=== PATIENT | female | born 1980 | race Caucasian/White ===

== ENCOUNTER → 2019-06-14 09:32 | Outpatient (BNVA) | payer BC, SELFPAY | PROVIDERS: Family Provider Family Medicine Geriatric Medicine; PCP Anesthesiology Pain Medicine; Referring Provider Licensed Practical Nurse; Visit Provider Psychiatry & Neurology Neurology | DX: G56.01 Carpal tunnel syndrome, right upper limb (principal) | CPT/HCPCS: 95885; 95908 ==

== ENCOUNTER 2019-08-06 08:59 | Outpatient (CLI) | payer BC, SELFPAY ==
--- NOTE | 2019-08-06 09:00 | IR_ITS ---
WS: [id number] MYELOGRAM CERVICAL, THORACIC, AND LUMBAR SPINE Fluoroscopic guided cervical myelogram CLINICAL INFORMATION: Thoracic back pain, LOW BACK PAIN, NECK PAIN COMPARISON: None. TECHNIQUE: The procedure, including risks, benefits, and complications, were discussed with the patie nt who agreed to proceed. A timeout was performed to confirm correct patient, procedure, and site. Using sterile technique, the patient was prepped and draped in the usual sterile fashion. After admin istration of local anesthesia using 1% preservative-free lidocaine and using fluoroscopic guidance, a 22-gauge spinal needle was advanced into the subarachnoid space at the L3-L4 level. Subsequently 13 cc of Omnipaque 300 was administered into the thecal sac. The needle was removed and hemostasis was a chieved. Subsequently the table was tilted down and contrast flowed freely into the cervical spine. S pot fluoroscopic images were obtained. FLUOROSCOPIC TIME: 0.7 minutes. Spot fluoroscopic images demonstrate free flow contrast into the cervical spine. Moderate spondylitic changes cervical spine with straightening of the normal cervical lordosis. Anterior hypertrophic kinza nges worse at C5-C7. Surgical clips in the neck. Normal C1-2 articulation. No instability in cervical spine on flexion-extension. Mild thoracic curve convex right. Mild spondylitic changes thoracic spine. Disc space heights and richie tebral body heights are well preserved. Mild lumbar curve convex left. Small riblets at T12. Disc space heights in the lumbar spine well pres erved. No anterolisthesis in the neutral position. No instability on flexion-extension. Please see CT myelogram report for additional detail. IR/IR myelogram spine total [id number] IMPRESSION: 1. Uncomplicated complete spinal myelogram 2. No instability on flexion-extension in the lumbar spine or cervical spine. Please see CT for further anatomic detail.
--- NOTE | 2019-08-06 11:00 | CT_ITS ---
WS: [id number] CT LUMBAR SPINE TECHNIQUE: Contrast-enhanced CT of the lumbar spine with coronal and sagittal reformatted images. CLINICAL INFORMATION: Low back pain COMPARISON: None. DLP: 1228.[address] scans at [facility] use at least one of these dose optimization techniques: automat ed exposure control; mA and/or kV adjustment per patient size (includes targeted exams where dose is matched to clinical indication); or iterative reconstruction. FINDINGS: Mild lumbar curve. Convex left. No acute compression. No high-grade central canal narrowing. L1-L2: Normal. L2-L3: Normal. L3-L4: No significant disc bulging. Spinal canal and foramen are patent. L4-L5: Mild annular bulging. Moderate facet arthropathy. Spinal canal and foramen are patent. L5-S1: L5 is partially sacralized. Spinal canal and foramen are patent. Incidental shotty retroperitoneal and periaortic lymph nodes. Prominent bilateral SI joint sclerosis can be seen with chronic prior sacroiliitis or degenerative ch jamaal CT/CT lumbar spine w con [id number] IMPRESSION: 1. Mild lumbar curve convex left. 2. No significant central canal stenosis. 3. Moderate facet arthropathy L4-5. 4. L5 is partially sacralized the left. 5. Bilateral SI joint sclerosis can be seen with prior sacroiliitis or degener ative change.
--- NOTE | 2019-08-06 11:00 | CT_ITS ---
WS: [id number] CT CERVICAL MYELOGRAM TECHNIQUE: CT of the cervical spine coronal and sagittal reformatted images post intrathecal administ ration of contrast. CLINICAL INFORMATION: Neck pain radiating to bilateral upper extremities COMPARISON: MRI September 18, 2018 DLP: 1659.[address] scans at [facility] use at least one of these dose optimization techniques: automat ed exposure control; mA and/or kV adjustment per patient size (includes targeted exams where dose is matched to clinical indication); or iterative reconstruction. FINDINGS: Straightening of the normal cervical lordosis. Anterior hypertrophic changes at C5-C7. C2-C3: No significant disc bulging. Spinal canal and foramen are patent. C3-C4: No significant disc bulging. Spinal canal and foramen are patent. Mild facet arthropathy. C4-C5: No significant disc bulging. Spinal canal and foramen are patent. Mild to moderate facet arthr opathy. C5-C6: Mild disc bulging with osteophytic ridging. Mild bilateral bony foraminal narrowing. Mild face t arthropathy. Spinal canal is patent. C6-C7: Disc osteophyte complex with endplate ridging. Left pericentral osteophytic protrusion. Spinal canal is patent. Moderate left and mild right foraminal narrowing. Mild facet arthropathy. C7-T1: Mild left and no significant right bony foraminal narrowing. Spinal canal is patent. Tiny cent ral disc protrusion. Visualized posterior fossa structures: Normal. CT/CT cervical spine w con [id number] IMPRESSION: 1. Straightening of the normal cervical lordosis. No high-grade central canal stenosis. 2. Mild spondylitic changes worse at C5-C7. 3. Left pericentral disc osteophyte protrusion with slight contact of the vent ral cervical cord. Moderate left C6-7 bony foraminal narrowing. 4. Otherwise mild bony foraminal narrowing at left C4-C5, left C5-C6, and left greater than right C7-T1. 5. Mild to moderate facet arthropathy C4-C5 and C5-C6.
--- NOTE | 2019-08-06 11:00 | CT_ITS ---
WS: [id number] CT THORACIC SPINE MYELOGRAM TECHNIQUE: Contrast-enhanced CT of the thoracic spine with coronal and sagittal reformatted images. CLINICAL INFORMATION: Thoracic back pain COMPARISON: MRI October 24, 2018 DLP: 929.[address] scans at [facility] use at least one of these dose optimization techniques: automat ed exposure control; mA and/or kV adjustment per patient size (includes targeted exams where dose is matched to clinical indication); or iterative reconstruction. FINDINGS: Mild thoracic curve. Mild thoracic kyphosis. A few tiny shallow disc protrusions in the mid thoracic spine without significant spinal canal narrowing. No significant central canal stenosis. Mild bony foraminal narrowing right T5-6, right T7-8, left T9-T10, and right T11-12. Mild facet arthropathy in the lower thoracic spine. Tiny central disc protrusions at T6-7, right T9-T 10, and right T10-11. No high-grade foraminal narrowing. CT/CT thoracic spine w con [id number] IMPRESSION: 1. Mild thoracic kyphosis. Mild thoracic curve convex right. 2. No significant central canal stenosis. Disc space heights and vertebral bod y heights well-preserved. 3. Tiny shallow central and right paracentral disc protrusions more prominent at T6-7, T9-T10, and T10-11 without significant spinal canal narrowing. 4. Mild bony foraminal narrowing more prominent at right T5-6, right T7-8, lef t T9-T10, and right T11-12.
[2019-08-06] MEDS: iohexol 300 mg/mL 50 mL Btl INTRATHECA (11:19)
== END 2019-08-06 09:00 | disposition home or self-care (01) ==
LOC: RADWPI 09:03
PROVIDERS: Family Provider Family Medicine Geriatric Medicine; PCP Family Medicine Geriatric Medicine; Visit Provider Licensed Practical Nurse
DX: M40.294 Other kyphosis, thoracic region (principal); M47.892 Other spondylosis, cervical region; M50.223 Other cervical disc displacement at C6-C7 level; M51.24 Other intervertebral disc displacement, thoracic region; M54.6 Pain in thoracic spine; M54.5 Low back pain; M54.2 Cervicalgia
CPT/HCPCS: 62305; 72040; 72120; 72126; 72129; 72132; J2001; Q9967

== ENCOUNTER 2019-11-19 10:26 | Day surgery (SDC) | payer BC, SELFPAY ==
[2019-11-16 14:33] VITALS: BMI 33.3
[2019-11-19 10:39] LABS: OR HCG Qualitative Urine Negative (Negative)
[2019-11-19 10:46] VITALS: BP 142/86; PULSE 76; RESP 18; TEMP 36.3; O2SAT 96
--- NOTE | 2019-11-19 10:57 | ANES.PREANE2 ---
Pre-Anesthetic Assessment Pre-Anesthetic Assessment: Height/Weight: Height 1.65 m Weight 90.718 kg Temp Pulse Resp BP Pulse Ox 97.3 F L 76 18 142/86 96 11/19/19 10:46 11/19/19 10:46 11/19/19 10:46 11/19/19 10:46 11/19/19 10:46 Preop Diagnosis: carpal tunnel syndrome Proposed Procedure: Operation Date: 11/19/19 12:00 Proposed Procedures p Open Right Median Nerve Release [id number] G56.01(Right) - Jose aBca MD Familial anesthetic complications: none Was Beta Heriberto taken within 24 hours: N/A Last intake: NPO > 8 hrs Social: Social History: No alcohol and No tobacco Exam: Pre-Anes Outpt Exam: alert, oriented x 3, clear to auscultation bilaterally and regular rate & rhythm Airway: Cervical ROM: WNL MP: 3 Dentition: Full Pulmonary: Pulmonary: Sleep apnea CV/HEM: CV/HEM: HTN Metabolic: Metabolic: Thyroid Neuropsych: Comments: narcolepsy Anesthetic Plan: ASA status: 2 Anesthesia: General Risk of > 500 ml blood loss (7ml/kg in children): No PFSH Anesthesia PFSH: Medical History (Updated 08/27/19 @ 11:53 by Jose Baca MD) Cervical disc disorder with myelopathy of mid-cervical region Depression Fibromyalgia Headache Low back pain Narcolepsy Panic disorder Postconcussive syndrome SI (sacroiliac) joint dysfunction Stenosis of cervical spine with myelopathy Thoracic degenerative disc disease Surgical History (Updated 08/27/19 @ 11:01 by Jose Baca MD) History of abdominal surgery History of thyroidectomy due to cancer History of tonsillectomy History of wisdom tooth extraction Family History Father Apnea, sleep Glaucoma Mother Panic attacks Social anxiety disorder Hypertension Social History (Updated 08/27/19 @ 10:51 by Susan Santos LPN) Smoking and tobacco status: never smoked Alcohol intake: never Lives independently: Yes Household members: significant other and children Housing: House Marital status: Single service: No Current occupational status: unemployed and previously employed Female Reproductive History: Date of last menstrual period: 10/29/19 Data Anesthesia Other Labs: Laboratory Results - last 48 hr 11/19/19 10:36 Urine HCG, Qual Negative Cardiac Studies: No Data to Display
[2019-11-19] MEDS: sodium chloride 0.9% 1,000 ML 30 ML IV (11:16)
[2019-11-19] MEDS: midazolam 1 mg/mL INJ 2 mL 2 MG IVP (11:16)
[2019-11-19] MEDS: vancomycin 1,000 MG in sodium chloride 0.9% 250 ML 250 MG IV (11:21)
--- NOTE | 2019-11-19 11:51 | W.PM.OPSUD ---
Surgery/Procedure H&P Update DATE OF PROCEDURE: November 19, 2019 DATE H&P PERFORMED: 11/06/19 H&P UPDATE INFORMATION: I have reviewed H&P completed within last 30 days and H&P to be scanned into chart PREOP DIAGNOSIS: carpal tunnel syndrome PRIMARY INDICATION FOR PROCEDURE: carpal tunnel syndrome PLANNED PROCEDURE: Operation Date: 11/19/19 12:00 Proposed Procedures Open Right Median Nerve Release at wrist.
--- NOTE | 2019-11-19 12:25 | P.OP_ITS ---
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 Post-op Plan: Home per Ambulatory Surgery protocol. Condition: stable Disposition: same day Coding Level of Care Code Acute Senior Electrical Project Manager for [employer]
[2019-11-19] MEDS: neomycin-poly-bacitracin oint 28 gm 1 APPLIC TOPICAL (13:02)
[2019-11-19 13:20] VITALS: BP 146/81; PULSE 99; RESP 18; TEMP 36.2; O2SAT 100
[2019-11-19 13:50] VITALS: BP 151/92; PULSE 84; RESP 18; O2SAT 100
--- NOTE | 2019-11-19 16:54 | PM.OP ---
Operative Report Date of procedure: November 19, 2019 Pre-op Diagnosis: Median nerve entrapment at the wrist on the right. Post-op diagnosis: same Procedure Done: Open release of the median nerve at the right wrist. Pathology: none sent Surgeon: Jose Baca Anesthesia: MAC Estimated blood loss (mL): 5 IV fluids (mL): 800 Complications: none Condition: stable Disposition: same day Brief History: The patient is a 39-year-old female with symptomatic, electrodiagnostically confirmed median nerve entrapment at the right wrist. Symptoms failed to respond adequately to conservative management, including wrist splinting. After review of the diagnostic and treatment options with the risks/potential benefits/rationale for each, she requested to proceed with open release of the median nerve at the right wrist. Procedure: After routine preoperative evaluation and informed consent were obtained, the patient was taken to the Operating Room and positioned supine on the operating table. She was maintained under intravenous sedation by Anesthesia personnel. The right upper extremity was extended on an arm board. A proposed palmar incision was marked with a sterile skin marker. The extremity was scrubbed with Betadine and prepped with DuraPrep from the fingertips to the axilla. Sterile towels, sterile drapes, and a sterile stockinette were utilized for draping of the operative field. An opening was fashioned in the sterile stockinette over the palmar aspect of the right hand. An [place] surgical barrier was placed. The proposed incision site was infiltrated with 1% Xylocaine with Epinephrine. A skin incision was made and carried down into the subcutaneous tissues. Self-retaining retractors were placed. The markedly thickened transverse carpal ligament was divided over the course of the median nerve in the palm. The ligament was divided distally until the palmar fat pad was encountered. Proximally, the ligament was divided with fine Metzenbaum scissors to a point approximately 2 centimeters above the wrist crease. There were mild diffuse epineural adhesions, which were treated with limited adhesiolysis. There was no evidence of residual median nerve impingement or entrapment in the visualized segment of the nerve at the completion of the procedure. The wound was then copiously irrigated with antibiotic irrigation. Hemostasis was ensured with the bipolar electrocautery. Wound closure was performed as a single layer utilizing 4-0 Nylon in a simple interrupted fashion. Antibiotic ointment was placed along the incision line. A bulky hand dressing was fashioned utilizing a combination of Kerlix fluffs, a Kerlix wrap, and an NORRIS/elastic bandage. The patient was transported to the Ambulatory Surgery Area for discharge home, as per the Ambulatory Surgery protocol. The patient tolerated the procedure well. All sponge, needle, and instrument counts were correct at the completion of the procedure.
== END 2019-11-19 14:00 | disposition home or self-care (01) ==
PROVIDERS: Anesthesiology; PCP Family Medicine Geriatric Medicine; Visit Provider Specialist
PROC: (CPT 64721; principal; 2019-11-19 12:00)
DX: G56.01 Carpal tunnel syndrome, right upper limb (principal); G47.30 Sleep apnea, unspecified; I10 Essential (primary) hypertension; M79.7 Fibromyalgia
CPT/HCPCS: 64721; 12345; 84703; 96365; 96374; J2001; J2250; J2704; J3010; J3370; J3490; J7030; J7050

== ENCOUNTER → 2019-12-04 15:02 | Outpatient (BNVA) | payer BC, SELFPAY | PROVIDERS: PCP Family Medicine Geriatric Medicine; Visit Provider Specialist | DX: R29.90 Unspecified symptoms and signs involving the nervous system (principal); F07.81 Postconcussional syndrome | CPT/HCPCS: 99213; 99214 ==

== ENCOUNTER → 2021-04-14 14:01 | Outpatient (BNVA) | payer BC, SELFPAY | PROVIDERS: PCP Family Medicine Geriatric Medicine; Visit Provider Internal Medicine | DX: R63.5 Abnormal weight gain (principal); E03.9 Hypothyroidism, unspecified; Z90.09 Acquired absence of other part of head and neck; G47.33 Obstructive sleep apnea (adult) (pediatric) | CPT/HCPCS: 99214 ==

== ENCOUNTER 2021-04-22 14:03 | Outpatient (CLI) | payer BC, SELFPAY ==
--- NOTE | 2021-04-22 14:15 | US_ITS ---
WS: [id number] ULTRASOUND THYROID TECHNIQUE: Ultrasound of the thyroid. CLINICAL INFORMATION: routine check up COMPARISON: None. FINDINGS: Thyroid: Prior total thyroidectomy. Normal thyroid bed. No cystic or solid lesions in the thyroid bed . No residual or recurrent thyroid tissue. Cervical lymphadenopathy: None. US/US thyroid [id number] IMPRESSION: Normal thyroid bed postoperative total thyroidectomy
== END 2021-04-22 14:04 | disposition home or self-care (01) ==
PROVIDERS: PCP Family Medicine Geriatric Medicine; Visit Provider Internal Medicine
DX: E89.0 Postprocedural hypothyroidism (principal)
CPT/HCPCS: 76536

== ENCOUNTER → 2021-07-27 13:17 | Outpatient (BNVA) | payer BC, SELFPAY | PROVIDERS: PCP Family Medicine Geriatric Medicine; Visit Provider Podiatrist Foot & Ankle Surgery | DX: M79.672 Pain in left foot (principal) | CPT/HCPCS: 73630 ==

== ENCOUNTER 2021-07-27 14:51 | Outpatient (CLI) | payer BC, SELFPAY | END 2021-07-27 14:52 | disposition home or self-care (01) | LOC: SPT 14:52 | PROVIDERS: PCP Family Medicine Geriatric Medicine; Visit Provider Podiatrist Foot & Ankle Surgery | DX: Z46.89 Encounter for fitting and adjustment of other specified devices (principal); M76.72 Peroneal tendinitis, left leg | CPT/HCPCS: 97760; L4361 ==

== ENCOUNTER 2022-06-09 13:42 | Outpatient (CLI) | payer BC, SELFPAY ==
--- NOTE | 2022-06-09 13:50 | MM_ITS ---
WS: [id number] BILATERAL 3D TOMOSYNTHESIS DIGITAL SCREENING MAMMOGRAPHY WITH CAD CLINICAL INFORMATION: SCREEN HISTORY: Screening mammogram. No current complaints. COMPARISON: None. TECHNIQUE: Bilateral CC and MLO views. FINDINGS: Scattered fibroglandular densities bilaterally. No suspicious focal mass, asymmetry, calcifications, or architectural distortion. No evidence of malignancy. Incidental punctate calcification LEFT breast MM/[place] [id number] IMPRESSION: BI-RADS: 2-Benign FOLLOW UP: 1 Year Follow-up Recommend return to annual screening mammography.
== END 2022-06-09 13:43 | disposition home or self-care (01) ==
LOC: RAD 13:45
PROVIDERS: PCP Family Medicine Geriatric Medicine; Visit Provider Family Medicine
DX: Z12.31 Encounter for screening mammogram for malignant neoplasm of breast (principal)
CPT/HCPCS: 77063; 77067

== ENCOUNTER → 2025-02-08 13:47 | Outpatient (BNVA) | payer BC, SELFPAY | PROVIDERS: PCP Family Medicine Geriatric Medicine; Visit Provider Nurse Practitioner | DX: R39.9 Unspecified symptoms and signs involving the genitourinary system (principal) | CPT/HCPCS: 81000; 87086 ==